=== PATIENT | female | born 1960 | race Two or more races ===

== ENCOUNTER 2022-12-29 14:46 | Emergency (ER) | payer OTHER ==
[~2022-12-29] VITALS: Ht 162.6 cm; Wt 63.5 kg
[2022-12-29] MEDS ORDERED: COZAAR50 MG PO (16:41)
[2022-12-29] MEDS ORDERED: SIMVASTATIN80 MG (16:41)
[2022-12-29] MEDS ORDERED: SINGULAIR4 M1 PO (16:42)
[2022-12-29] MEDS ORDERED: ACID REDUCER20 M1 PO (16:42)
== END 2022-12-29 18:25 | disposition home or self-care (01) ==
LOC: ER 14:46
DX: M25.512 Pain in left shoulder (principal); M79.602 Pain in left arm; M25.532 Pain in left wrist; Z91.041 Radiographic dye allergy status; Z88.1 Allergy status to other antibiotic agents; Z88.2 Allergy status to sulfonamides; I10 Essential (primary) hypertension